=== PATIENT | female | born 1970 | race Caucasian/White ===

== ENCOUNTER → 2017-03-12 | Day surgery (SDC) | payer OTHER ==
--- NOTE | 2017-03-13 15:31 | PATH ---
Surgical Pathology Report Patient Name: ANGELIC RAHMAN [facility]. Rec. #: [id number] /Age/Gender: 1970 (Age: 47) / F Account: [id number] Location: [facility] Taken: 03/12/2017 Received: 03/12/2017 Reported: 03/13/2017 Physicians: Chuyita Lafleur M.D. Specimen(s) Received A: RIGHT BREAST SPECIMEN WITH CALCIFICATIONS B: RIGHT BREAST SPECIMEN WITHOUT CALCIFICATIONS Clinical History Nonpalpable lesion, microcalcification, suspicious Final Diagnosis A. RIGHT BREAST, WITH CALCIFICATION, STEREOTACTIC NEEDLE CORE BIOPSY: BENIGN BREAST TISSUE WITH FIBROCYSTIC CHANGES INCLUDING COLUMNAR CELL CHANGE, STROMAL FIBROSIS, DUCTAL DILATATION, AND ASSOCIATED CALCIFICATION. B. RIGHT BREAST, WITHOUT CALCIFICATION, STEREOTACTIC NEEDLE CORE BIOPSY: FOCAL LOBULAR CARCINOMA IN SITU (LCIS), CLASSICAL TYPE, ARISING IN A BACKGROUND OF FIBROCYSTIC CHANGES INCLUDING FOCAL USUAL DUCTAL HYPERPLASIA (UDH), COLUMNAR CELL CHANGE, STROMAL FIBROSIS, DUCTAL DILATATION, AND ASSOCIATED CALCIFICATION. Comment: Immunohistochemical stains performed and interpreted at [facility] show the following results: E-cadherin is negative in the area of lobular expansion, consistent with lobular phenotype. This report was faxed to Dr. Lafleur's office on 03/13/2017. Electronically Signed Joao Montero M.D. Gross Description A. Received in formalin, labeled "right breast with calcifications," are 4 wharton-yellow, cylindrical portions of fibroadipose tissue ranging from 0.7-1.6 cm. in length and averaging 0.4 cm. in diameter. The specimen is submitted in toto in one cassette. B. Received in formalin labeled "right breast without calcifications," is a 3.5 x 3.3 x 0.4 cm aggregate of multiple wharton-yellow, irregular to cylindrical portions of fibroadipose tissue admixed with blood clot. The formalin is filtered and the specimen is entirely submitted in 2 cassettes. Time to formalin fixation: 5 minutes Total formalin fixation time: Approximately 8 hours. 03/12/2017 [facility]03/12/2017
== END | disposition home or self-care (01) ==
LOC: FMAMMOTONE 08:40
PROVIDERS: ATTEND Surgery
PROC: 0HBT3ZX Excision of Right Breast, Percutaneous Approach, Diagnostic (ICD-10-PCS; principal; 2017-03-12)
DX: D05.01 Lobular carcinoma in situ of right breast (principal); R92.1 Mammographic calcification found on diagnostic imaging of breast; N60.31 Fibrosclerosis of right breast; N60.81 Other benign mammary dysplasias of right breast; N64.89 Other specified disorders of breast
CPT/HCPCS: 19081; 88305-TC; 88342-TC

== ENCOUNTER 2017-03-28 08:11 | Day surgery (SDC) | payer OTHER ==
[2017-03-26 17:41] VITALS: BMI 23.5
[~2017-03-28 08:11] MED LIST: LIDOCAINE HCL 1%, 10 MG/ML (20ML VIAL) IJ ONE; ceFAZolin SODIUM 1 GM VIAL IVPB ONE
[2017-03-28 08:52] LABS: URINE APPEARANCE CLEAR; URINE BILIRUBIN NEGATIVE (NEGATIVE); URINE COLOR LTYELLOW; URINE GLUCOSE (UA) NEGATIVE (NEGATIVE); URINE KETONE NEGATIVE (NEGATIVE); URINE LEUK ESTERASE NEGATIVE (NEGATIVE); URINE NITRITE NEGATIVE (NEGATIVE); URINE PROTEIN NEGATIVE (NEGATIVE); URINE UROBILINOGEN NEGATIVE E.U./dl (0.2-1.0)
[2017-03-28 08:56] LABS: URINE BLOOD 2+ (NEGATIVE)
[2017-03-28 08:58] LABS: URINE MUCUS RARE; URINE RBC 4 /hpf (0-3)
[2017-03-28] MEDS ORDERED: LIDOCAINE HCL 1%, 10 MG/ML (20ML VIAL) ONE (10:49)
[2017-03-28] MEDS ORDERED: MIDAZOLAM HCL 2 MG/2 ML SINGLE DOSE VIAL ONE (10:51)
[2017-03-28] MEDS ORDERED: PROPOFOL 20 ML ONE (10:51)
--- NOTE | 2017-03-28 11:01 | EKG ---
Test Reason : Blood Pressure : / mmHG Vent. Rate : 077 BPM Atrial Rate : 077 BPM P-R Int : 144 ms QRS Dur : 084 ms QT Int : 380 ms P-R-T Axes : 083 086 061 degrees QTc Int : 430 ms NORMAL SINUS RHYTHM NO PREVIOUS ECGS AVAILABLE Confirmed by SONJA HILLIARD MD ([id number]) on 03/28/2017 11:00:30 AM Referred By: Chuyita Lafleur Confirmed By:SONJA HILLIARD MD
[2017-03-28] MEDS ORDERED: ceFAZolin SODIUM 1 GM VIAL ONE (11:44)
[2017-03-28] MEDS ORDERED: ceFAZolin SODIUM 1 GM VIAL IVPB ONE (11:45)
[2017-03-28] MEDS ORDERED: LIDOCAINE HCL 1%, 10 MG/ML (20ML VIAL) IJ ONE (11:49)
[2017-03-28] MEDS ORDERED: KETOROLAC TROMETHAMINE 30 MG/1 ML VIAL ONE (11:53)
[2017-03-28] MEDS ORDERED: oxyCODONE HCL 5 MG TABLET PO PRN (12:01)
[2017-03-28] MEDS ORDERED: ONDANSETRON 4 MG/2 ML VIAL IVPUSH PRN (12:01)
[2017-03-28] MEDS ORDERED: LACTATED RINGERS SOLUTION 1,000 ML IV SCH (12:15)
[2017-03-28 13:05] VITALS: TEMP 98.7
--- NOTE | 2017-03-28 14:19 | OP ---
DATE OF OPERATION: 03/28/2017 PREOPERATIVE DIAGNOSIS: Right breast lobular carcinoma in situ. POSTOPERATIVE DIAGNOSIS: Right breast lobular carcinoma in situ. PROCEDURE: Left breast wire localized lumpectomy. SURGEON: Chuyita Okeefe MD ANESTHESIA: Local IV sedation. ESTIMATED BLOOD LOSS: Minimal. COMPLICATIONS: None. This is a sterile procedure. INDICATIONS: The patient had a screening mammogram that noted calcifications in her right breast. Stereotactic needle biopsy showed fibrocystic changes consistent with calcifications and finding of lobular carcinoma in situ. My recommendation was an excision of the area to make sure there is no further upgrade in the lesion. The procedure of her right breast wide localized lumpectomy was discussed with her and all of the questions answered. PROCEDURE IN DETAIL: The patient was brought to [facility] in the office and taken first to breast imaging where a wire was used to localize the clip in the upper inner right breast. She was then brought up to the operating room. After IV sedation and IV antibiotics, the right breast was prepped and draped in the usual sterile fashion. The area in the upper inner right breast was anesthetized with 1% lidocaine without epinephrine. A curvilinear incision was made to include the entry site of the wire since half of the Stiffner was outside of the breast. Therefore, once that was done, the wire was used to as a guide to get down to the area of interest. This was excised en bloc. Upon doing this, I felt like I entered the hematoma, though I did take additional tissue. I think the clip likely fell out, but I did take the entire tissue around the hematoma in the right breast 1 o'clock location. This was tagged with a long stitch lateral and short stitch superior and sent for a specimen radiograph. Hemostasis was assured with electrocautery. Specimen radiograph showed the wire to be intact on the specimen but no clip. The parenchyma was approximated with interrupted 2-0 Vicryl. Skin was approximated with interrupted 3-0 Vicryl and running 4-0 Prolene. A sterile dressing with Tegaderm and 4x4s was applied. She tolerated the procedure well and was taken to the recovery room in good condition. CHUYITA OKEEFE M.D. [id number]
[2017-03-28 15:22] VITALS: BP 102/60; PULSE 71
--- NOTE | 2017-04-01 08:09 | PATH ---
Surgical Pathology Report Patient Name: ANGELIC RAHMAN [facility]. Rec. #: [id number] /Age/Gender: 1970 (Age: 47) / F Account: [id number] Location: [facility] Taken: 03/28/2017 Received: 03/28/2017 Reported: 04/01/2017 Physicians: Chuyita Lafleur M.D. Specimen(s) Received RIGHT BREAST LUMPECTOMY Clinical History LCIS Final Diagnosis BREAST, RIGHT, LUMPECTOMY: LOBULAR CARCINOMA IN SITU (LCIS), CLASSICAL TYPE, WITH FOCAL MICROCALCIFICATIONS ASSOCIATED PRIOR BIOPSY SITE CHANGES IDENTIFIED. BACKGROUND FIBROCYSTIC CHANGE WITH USUAL AND PAPILLARY DUCTAL HYPERPLASIA, ADENOSIS, FOCAL COLUMNAR CELL CHANGE, DUCT DILATATION, STROMAL FIBROSIS AND ASSOCIATED MICROCALCIFICATIONS. Electronically Signed Michael Hopkins M.D. Gross Description Received fresh on an AccuGrid labeled "right breast lumpectomy" is a 3.7 x 3.0 x 1.3 cm irregular portion of fibroadipose tissue with a needle localization wire present. There is a short suture marking the superior aspect and a long suture marking the lateral aspect of the specimen, per the surgeon. There is no skin or nipple present. The specimen is inked as follows: Superior and lateral blue; inferior green; medial yellow; anterior red; deep black. The specimen is serially sectioned from superior to inferior. Sectioning reveals a previous biopsy cavity surrounded by fibrous tissue. No definitive masses are identified. The specimen is entirely and sequentially submitted in 8 cassettes with the superior margin in cassette 1 and inferior margin in cassette 8. Time to fixation: not indicated Total formalin fixation time: ~6 hours /03/28/2017/03/28/2017
== END 2017-03-28 14:10 | disposition home or self-care (01) ==
LOC: JASU-SURG 08:11
PROVIDERS: ATTEND Surgery
PROC: 0HBT0ZZ Excision of Right Breast, Open Approach (ICD-10-PCS; principal; 2017-03-28 11:00)
DX: D05.01 Lobular carcinoma in situ of right breast (principal)
CPT/HCPCS: 19281; 81003; 81015; 84703; 88307-TC; 93005; 93010; 94760